=== PATIENT | male | born 1985 | race Two or more races ===

== ENCOUNTER 2019-10-06 02:19 | Emergency (ER) | payer SELFPAY ==
[~2019-10-06] VITALS: Ht 175.3 cm; Wt 81.6 kg
[2019-10-06 05:15] LABS: Basophils # (auto) 0 uL; Basophils % (auto) 0.7 % (0.0-2.0); Eosinophils # (auto) 0.2 uL; Eosinophils % (auto) 2.6 % (0.0-7.0); Hematocrit 42.8 % (41.0-53.0); Hemoglobin 14.6 g/dL (13.5-17.5); Lymphocytes # (auto) 0.4 uL; Lymphocytes % (auto) 6.8 % (10.0-50.0); Mean Corpuscular Hemoglobin 31.5 pg (28.0-32.0); Mean Corpuscular Hgb Conc. 34.1 g/dL (32.0-36.0); Mean Corpuscular Volume 92.3 fL (80.0-100.0); Monocytes # (auto) 0.5 uL; Monocytes % (auto) 7.9 % (0.0-12.0); Neutrophils # (auto) 4.8 uL; Nucleated Red Blood Cells % 0.3 %; Platelet Count (auto) 166 10^3/uL (140-450); Red Blood Cells 4.64 10^6/uL (4.5-5.90); Red Cell Distribution Width 12.6 % (11.8-14.3); White Blood Cell 5.8 10^3/uL (4.4-10.8)
[2019-10-06 05:21] LABS: Albumin 4.1 g/dL (3.4-5.0); Anion Gap 8 (5-15); Blood Urea Nitrogen 18 mg/dL (7-18); Calcium 9.1 mg/dL (8.5-10.1); Carbon Dioxide 24 mmol/L (21-32); Chloride 105 mmol/L (98-107); Glucose 97 mg/dL (74-106); Potassium 4.1 mmol/L (3.5-5.1); Sodium 137 mmol/L (136-145)
[2019-10-06 05:27] LABS: Alanine Aminotransferase 203 U/L (16-61); Alkaline Phosphatase 124 U/L (45-117); Aspartate Aminotransferase 57 U/L (15-37); BUN/Creatinine Ratio 23.1; Bilirubin, Total 0.8 mg/dL (0.2-1.0); GFR African American 147 mL/min; GFR Non-African American 122 mL/min; Total Protein 7.8 g/dL (6.4-8.2)
[2019-10-06 09:00] VITALS: BP 124/66
== END 2019-10-06 09:08 | disposition home or self-care (01) ==
LOC: ER 02:19
DX: R07.89 Other chest pain (principal); F41.9 Anxiety disorder, unspecified; R94.5 Abnormal results of liver function studies
CPT/HCPCS: 36415; 71045; 80053; 84484; 85025; 93005